=== PATIENT | male | born 1990 | race Caucasian/White ===

== ENCOUNTER 2018-05-22 08:33 | Emergency (ER) | payer OTHER ==
[2018-05-22 08:39] VITALS: BP 130/78
[2018-05-22] MEDS ORDERED: PROPARACAINE 0.5% OPHTH DROPS 15 ML LEFTEYE STA (09:11)
--- NOTE | 2018-05-22 09:22 | ED Physician Documentation ---
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 He has pain and a foreign body sensation when he blinks. He has some blurring of his vision and he has been quite miserable. He states the scratch happened from his young daughter by accident. Review of Systems Constitutional: denies: Fever, Chills Eyes: reports: Irritation. denies: Loss of vision, Decreased vision, Photophobia Ears: denies: Ear pain Nose: denies: Rhinorrhea / runny nose, Congestion Respiratory: denies: Cough GI: denies: Vomiting PD PAST MEDICAL HISTORY - Past Medical History Past Medical History: No - Present Medications Home Medications: Ambulatory Orders Medication Instructions Recorded Confirmed Neomycin/Poly/Dex Ophth Drops 1 drops LEFTEYE QID #1 bottle 05/22/18 [Maxitrol Ophth Drops] - Allergies Allergies/Adverse Reactions: Allergies Allergy/AdvReac Type Severity Reaction Status Date / Time No Known Drug Allergies Allergy Verified 05/22/18 08:37 - Social History Does the pt smoke?: No Smoking Status: Never smoker PD ED PE NORMAL - Vitals Vital signs reviewed: Yes (normal ) - General General: Alert and oriented X 3, Well developed/nourished, Other (appears to be in pain clutching the left eye) - HEENT HEENT: Atraumatic, PERRL, EOMI, Other (There is scleral injection on the left and there is superficial flurosceine uptake in the left lateral lower quadrant. 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 - Sepsis Event Vital Signs: Vital Signs - 24 hr 05/22/18 08:37 Temperature 36.2 C L Heart Rate 75 Respiratory 16 Rate Blood Pressure 130/78 O2 Saturation 98 Oxygen O2 Source Room air Departure - Departure Disposition: 01 Home, Self Care Clinical Impression: Corneal abrasion, left Qualifiers: Encounter type: initial encounter Qualified Code(s): S05.02XA - Injury of conjunctiva and corneal abrasion without foreign body, left eye, initial encounter Condition: Stable Instructions: ED Eye Injury Corneal Abrasion Follow-Up: KATIE Lopez [Provider Group] Prescriptions: Neomycin/Poly/Dex Ophth Drops [Maxitrol Ophth Drops] 1 drops LEFTEYE QID #1 bottle
== END 2018-05-22 09:30 | disposition home or self-care (01) ==
LOC: ED 08:33
DX: S05.02XA Injury of conjunctiva and corneal abrasion without foreign body, left eye, initial encounter (principal); W22.8XXA Striking against or struck by other objects, initial encounter
CPT/HCPCS: 99283; J3490